=== PATIENT | male | born 1980 | race Caucasian/White ===

== ENCOUNTER 2017-05-01 00:10 | Emergency (ER) | payer OTHER ==
[~2017-05-01] VITALS: Ht 190.5 cm; Wt 130.1 kg
[2017-05-01 00:16] VITALS: BP 147/89
[2017-05-01] MEDS ORDERED: PERCOCET 5/31 TABLET PO (02:39)
[2017-05-01] MEDS ORDERED: CLEOCIN300 MG PO (02:39)
== END 2017-05-01 02:50 | disposition home or self-care (01) ==
LOC: EME 00:10
PROC: 0H9AXZZ Drainage of Inguinal Skin, External Approach (ICD-10-PCS; principal; 2017-05-01)
DX: L02.214 Cutaneous abscess of groin (principal); Z72.0 Tobacco use
CPT/HCPCS: 87070; 87075; 87205; 99281; 99284

== ENCOUNTER 2017-05-02 22:39 | Emergency (ER) | payer OTHER ==
[~2017-05-02] VITALS: Ht 190.5 cm; Wt 128.8 kg
[~2017-05-02 22:39] MED LIST: CLEOCIN300 MG PO; PERCOCET 5/31 TABLET PO
[2017-05-03 00:59] VITALS: BP 152/92
== END 2017-05-03 01:11 | disposition home or self-care (01) ==
LOC: EME 22:39
DX: Z48.01 Encounter for change or removal of surgical wound dressing (principal); L02.214 Cutaneous abscess of groin
CPT/HCPCS: 99281; 99284